=== PATIENT | male | born 1970 | race Caucasian/White ===

== ENCOUNTER → 2019-07-09 | Outpatient (CLI) | payer BC ==
[2019-07-09 16:08] LABS: Basophils % (A) 1 %; Eosinophils # (A) 0.1 k/uL (0-0.7); Eosinophils % (A) 2 %; HGB 13.7 gm/dL (13.0-17.5); Lymphocytes # (A) 1.9 k/uL (1.0-4.8); Lymphocytes % (A) 28 %; MCH 26.9 pg (25.0-35.0); MCHC 32.7 g/dL (31.0-37.0); MCV 82.2 fL (80.0-100.0); Monocytes # (A) 0.3 k/uL (0-1.0); Monocytes % (A) 4 %; Neutrophils # (A) 4.1 k/uL (1.3-7.7); Neutrophils % (A) 62 %; Platelet Count 459 k/uL (150-450); RBC 5.11 m/uL (4.30-5.90); RDW 13.8 % (11.5-15.5); WBC 6.6 k/uL (3.8-10.6)
[2019-07-09 16:22] LABS: INR 0.9 (<1.2); Prothrombin Time 9.7 sec (9.0-12.0)
[2019-07-09 23:50] LABS: Alpha Fetoprotein, Tumor Mkr 2.8 ng/mL (0.0-7.9); Carcinoembryonic Antigen 1.4 ng/mL (0.0-4.9)
[2019-07-10 00:10] LABS: Hepatitis A Antibody IgM Non-Reactive (Non-Reactive); Hepatitis B Core IgM Non-Reactive (Non-Reactive); Hepatitis B Surface Antigen Non-Reactive (Non-Reactive); Hepatitis C IgG Antibody Non-Reactive (Non-Reactive)
[2019-07-10 00:42] LABS: African American GFR (CKD) 116.6 (60.0-200.0); Albumin 4.7 g/dL (3.80-4.90); Albumin/Globulin Ratio 2.04 (1.60-3.17); Anion Gap 6.6 mmol/L (4.00-12.00); BUN/Creat Ratio 14.44 Ratio (12.00-20.00); Calcium 9.4 mg/dL (8.7-10.3); Carbon Dioxide 28.4 mmol/L (21.6-31.8); Globulin 2.3 g/dL (1.6-3.3); Potassium 4.1 mmol/L (3.5-5.5); Total Bilirubin 0.2 mg/dL (0.2-1.2)
== END | disposition home or self-care (01) ==
LOC: LABWHC1 15:36
PROVIDERS: ATTEND Nurse Practitioner
DX: K76.9 Liver disease, unspecified (principal)
CPT/HCPCS: 36415; 80053; 80074; 82105; 82378; 85025; 85610

== ENCOUNTER 2019-07-17 12:14 | Day surgery (SDC) | payer BC ==
[2019-07-15 08:47] VITALS: BMI 33.5
[~2019-07-17 12:14] MED LIST: HYDROmorphone 0.5 MG/0.5 ML SYRINGE IVP PRN; LACTATED RINGERS 1,000 ML IV SCH; ONDANSETRON 4 MG/2 ML VIAL IVP PRN
[2019-07-17 13:02] VITALS: TEMP 97.6
[2019-07-17] MEDS ORDERED: LIDOCAINE 1% 20 ML VIAL (10MG/ML) FOR IV START INTRADERMA ONE (13:02)
[2019-07-17] MEDS ORDERED: PROPOFOL 10 MG/ML 20 ML VIAL IV ONE (13:41)
[2019-07-17] MEDS ORDERED: KETAMINE 10 MG/ML 20 ML VIAL ONE (13:41)
[2019-07-17] MEDS ORDERED: LIDOCAINE 1% INJ 10MG/ML (20 ML MDV) ONE (13:41)
--- NOTE | 2019-07-17 14:26 | P.PCN ---
Date of Procedure: 07/17/19 Description of Procedure: Brief history: Patient is a pleasant scheduled for an elective upper endoscopy as well as colonoscopy as a part of evaluation of epigastric abdominal pain and abnormal CT findings. The patient reports intermittent epigastric pain which has been improved recently. He also had abnormal computed tomography scan findings with annular thickening at the hepatic flexure with colitis and mass both on the differential. Procedure performed: Esophagogastroduodenoscopy with biopsy Colonoscopy with polypectomy and biopsy and tattoo placed Estimated blood loss: Minimal. Preoperative diagnosis: Epigastric abdominal pain, abnormal computed tomography scan of the abdomen (concern for thickening at the area of the hepatic flexure) Anesthesia: MAC Procedure: After informed consent was obtained from the patient was brought into the endoscopy unit and IV sedation was administered by anesthesia under continuous monitoring. Initially upper endoscopy was done. The Olympus GF 190 video endoscope was inserted into the mouth and esophagus intubated without any difficulty and was gradually advanced into the stomach and duodenum and carefully examined. The bulb and second part of the duodenum appeared normal and biopsied. The scope was then withdrawn into the stomach adequately insufflated with air and upon careful examination the antrum and body, cardia and fundus appeared normal, with mild scattered erythema in the antrum and body suggestive of mild gastritis which is biopsy. The scope was then withdrawn into the esophagus. The GE junction was located at 40 cm to the incisors. It appeared regular with no erythema erosions or ulcerations. Rest of the esophagus appeared normal. Patient tolerated the procedure well. At this time the patient continued to remain sedation. Initial digital rectal examination was normal. Olympus CF 190 video colonoscope was then inserted into the rectum and gradually advanced to the cecum without any difficulty. Careful examination was performed as the scope was gradually being withdrawn. The prep was excellent. The transverse colon, descending colon, sigmoid colon and rectum appeared were examined with findings of a circumferential hepatic flexure mass encompassing approximately 80% of the lumen which could not be traversed. Biopsies of the hepatic flexure mass were taken and tattoos were placed proximally to the lesion with suspicion for malignancy. Diminutive sessile transverse colon polyp measuring 2 mm removed with cold forcep polypectomy. Diminutive sessile 3 mm descending colon polyp removed with cold forcep polypectomy. Diminutive 1 mm rectal polyp removed with cold forcep polypectomy. Retroflexion was performed in the rectum and no lesions were noted. Patient tolerated the procedure well. Impression: 1. Mild gastritis antrum and body, biopsied. Duodenal biopsies. 2. Malignant-appearing hepatic flexure mass encompassing 80% of the lumen biopsies with tattoos placed proximal to the mass. 3 diminutive polyps removed from the transverse colon, descending colon and rectum. Recommendations: Findings of this examination were discussed with the patient as well as his . Okay to resume diet. Okay to resume medications. Patient will need surgical evaluation, unclear sessile was care with a surgeon for will need referral. Await pathology from biopsies and polypectomy. Further recommendations pending findings on pathology.
[2019-07-17 14:58] VITALS: BP 138/98; PULSE 72; RESP 18
== END 2019-07-17 15:01 | disposition home or self-care (01) ==
LOC: ORWHC2ENDO 12:14
PROVIDERS: ATTEND Internal Medicine
DX: C18.3 Malignant neoplasm of hepatic flexure (principal); D12.3 Benign neoplasm of transverse colon; D12.4 Benign neoplasm of descending colon; B96.81 Helicobacter pylori [H. pylori] as the cause of diseases classified elsewhere; E66.3 Overweight; Z68.33 Body mass index [BMI] 33.0-33.9, adult; Z87.891 Personal history of nicotine dependence; Z91.013 Allergy to seafood
CPT/HCPCS: 88305; 88342; 45380; 43239; 45381; J2001; J2704

== ENCOUNTER → 2019-07-26 | Outpatient (CLI) | payer BC ==
--- NOTE | 2019-07-26 15:58 | CT ---
EXAMINATION TYPE: CT chest w con DATE OF EXAM: 07/26/2019 COMPARISON: NONE HISTORY: Colon ca. Observe for mets CT DLP: 555.30 mGycm. Automated Exposure Control for Dose Reduction was Utilized. TECHNIQUE: CT scan of the thorax is performed following with IV Contrast, patient injected with 100 mL of Isovue 300. FINDINGS: LUNGS: There is a tiny 2 mm nodular density in the right middle lobe on series 4 image 34 laterally. This is along the pulmonary vessel and could represent vascular ectasia, atelectasis or small pulmona ry nodule. No other suspicious pulmonary nodule or mass is seen. Mild paraseptal emphysematous change . Minimal dependent bibasilar atelectasis. No focal consolidation, pleural effusion or pneumothorax. MEDIASTINUM: There are no greater than 1 cm hilar or mediastinal lymph nodes. No pericardial effusi on is seen. Strand-like density in the superior mediastinum is likely on the basis of residual thymi c tissue. Trace coronary artery calcifications. Heart is upper limits of normal size. OTHER: Mild degree hepatic steatosis is evident, limiting evaluation for hepatic masses. There are 2 hepatic lesions seen in segment 5 and 6 1/3 hepatic lesion seen bridging segment 2 and segment 3. The largest appears as a hepatic cyst and the others will be characterized on the MRI liver ordered (2 s mall to accurately characterize on this single phase CT. Mild multilevel degenerative changes of the spine. Very small hiatal hernia. No adrenal gland nodules. No adenopathy in the upper abdomen. Mild retroare olar gynecomastia. Additionally noted splenomegaly as the spleen measures 14.3 cm in craniocaudal dim ension. IMPRESSION: 1. Punctate 2 mm nodular density in the right middle lobe. This is of low suspicion for metastasis at this time although follow-up CT in 12 months is recommended. This alternatively could represent vasc ular ectasia or atelectasis. 2. No mediastinal adenopathy. No suspicious osseous lesion seen. 3. Incidentally noted hepatic steatosis, hepatic cysts, 2 lesions that are too small to characterize, and splenomegaly.
--- NOTE | 2019-07-26 17:34 | MR ---
EXAMINATION TYPE: MR liver wo/w con DATE OF EXAM: 07/26/2019 COMPARISON: None HISTORY: Colon Ca,Z03.89 Obs for mets CONTRAST: Standard multiplanar, multisequence MRI departmental protocol utilizing 11 mL intravenous Gadavist ga dolinium contrast. FINDINGS: Liver has normal size and contour. There is bilobed 1.2 cm cyst in the central right lobe of the live r. There is 1.6 cm cyst in the left lobe of the liver. The contrast images show multiple variable-sized ring-enhancing lesions in the liver. The largest kehinde sures 2.2 cm. The bile ducts are not dilated. Spleen is intact. Stomach appears intact. There is no e vidence of a pancreatic mass. Pancreatic duct appears normal. Gallbladder is somewhat contracted. There is no adrenal mass. Kidneys show satisfactory contrast opacification. There is no hydronephrosi s. There is no retroperitoneal adenopathy. There is no pleural effusion. There is no ascites. Visuali zed bony structures appear intact. IMPRESSION: Numerous ring-enhancing lesions in the liver consistent with metastatic disease. Small hepatic cysts.
== END | disposition home or self-care (01) ==
LOC: RADCTMAIN 06:58
PROVIDERS: ATTEND Internal Medicine Hematology & Oncology
DX: C18.2 Malignant neoplasm of ascending colon (principal); C78.7 Secondary malignant neoplasm of liver and intrahepatic bile duct; K76.9 Liver disease, unspecified; K76.89 Other specified diseases of liver; J98.4 Other disorders of lung
CPT/HCPCS: 71260; 74183; A9585; Q9967

== ENCOUNTER 2019-07-29 07:24 | Day surgery (SDC) | payer BC ==
[2019-07-29] MEDS ORDERED: HYDROmorphone 1 MG/ML 1 ML SYRINGE IVP PRN ×2 (07:55→09:14)
[2019-07-29] MEDS ORDERED: ALPRAZolam 0.5 MG TAB PO ONE (07:55)
[2019-07-29 08:40] VITALS: TEMP 97.7
[2019-07-29 08:40] LABS: Mean Platelet Volume 5.4; Platelet Count 406 k/uL (150-450)
[2019-07-29 08:49] LABS: Prothrombin Time 10.3 sec (9.0-12.0)
[2019-07-29] MEDS ORDERED: HYDROmorphone 1 MG/ML 1 ML SYRINGE IM STA (09:12)
--- NOTE | 2019-07-29 11:29 | US ---
EXAMINATION TYPE: US biopsy liver DATE OF EXAM: 07/29/2019 HISTORY: Liver masses. FINDINGS: Maximal barrier technique was utilized. The skin overlying a suitable path to the patient' s right lobe liver mass was localized with ultrasound and the overlying skin prepped and draped. Ult rasound was utilized with sterile technique. Lidocaine was used for local anesthesia. A skin jyoti w as made with a scalpel. An 18-gauge needle was advanced under direct ultrasound guidance and core sp ecimen obtained of the mass and additional pass was made using similar technique. Specimen submitted in formalin to Pathology. Following the procedure, hemostasis achieved and the patient is discharge d in stable condition without complication. IMPRESSION:STATUS POST ULTRASOUND GUIDED CORE BIOPSY OF right lobe liver MASS, PATHOLOGY IS PENDING. THIS PROCEDURE IS PERFORMED BY THE UNDERSIGNED.
[2019-07-29 13:09] VITALS: BP 138/78; PULSE 77; RESP 16
== END 2019-07-29 13:00 | disposition home or self-care (01) ==
LOC: RADPROMAIN 07:24
PROVIDERS: ATTEND Student in an Organized Health Care Education/Training Program
DX: C78.7 Secondary malignant neoplasm of liver and intrahepatic bile duct (principal); C18.9 Malignant neoplasm of colon, unspecified; K75.81 Nonalcoholic steatohepatitis (NASH)
CPT/HCPCS: 85049; 85610; 88342; 88307; 88341; 47000; 76942; J1170

== ENCOUNTER → 2019-10-29 | Outpatient (CLI) | payer BC ==
[2019-10-29 14:52] LABS: African American GFR (CKD) >90 (>60 ml/min/1.73 sqM); Blood Urea Nitrogen 14 mg/dL (9-20); Non-African American GFR(CKD) >90 (>60 ml/min/1.73 sqM)
--- NOTE | 2019-10-30 04:19 | CT ---
EXAMINATION TYPE: CT ChestAbdPelvis w con DATE OF EXAM: 10/29/2019 COMPARISON: CT chest 07/26/2019 and MRI liver 07/26/2019. HISTORY: 49-year-old male Colon cancer. TECHNIQUE: Contiguous axial scanning of the chest, abdomen, and pelvis performed with IV Contrast, pa tient injected with 100ml mL of Isovue 300. Delayed images through the kidneys were obtained. Coronal /sagittal reconstructions performed. CT DLP: 2038 mGycm Automated exposure control for dose reduction was used. FINDINGS: CHEST: Right anterior chest wall injection port with catheter tip at the mid SVC level. Heart normal size without pericardial effusion. Ectatic aortic root at 3.8 cm. Conventional arch vessel branching anatomy. Mild bilateral gynecomastia. No thoracic lymphadenopathy by CT size criteria. A 4 mm right middle lobe pulmonary nodule is slightly more defined from prior exam previously measuri ng 3 mm. A 7 mm subpleural pulmonary nodule posterior right lower lobe is unchanged. Mild centrilobular emphysema in the upper lungs. No consolidation or pleural effusion. ABDOMEN: Multiple small hepatic lesions are redemonstrated, 2 of which represent benign cysts. The hypodense l esions have decreased in size compared to the MRI of 07/26/2019. Approximately 8 lesions are identified. The largest in the posterior right liver lobe, axial image 61 , measuring 1.8 cm versus 2.3 cm, previously. Another lesion in the peripheral right lower lobe, axial image 65 measures 1.3 cm versus 2.0 cm, prev iously. Portal venous system is patent. No biliary ductal dilatation. Gallbladder, adrenal glands, kidneys, spleen, and pancreas appear within normal limits. No dilated small bowel, free fluid, or free air. No mesenteric or retroperitoneal lymphadenopathy. Normal appendix. Moderate stool burden. Redundant sigmoid colon. No pericolonic inflammatory change. Mild fusiform ectasia infrarenal abdominal aorta at 2.5 cm. PELVIS: Bladder urine distended. Prostate gland measures 4.6 cm wide with central calcifications. No abnormal fluid collection in the pelvis or pelvic lymphadenopathy. BONES: No osseous destructive process. IMPRESSION: 1. HEPATIC METASTASES, APPROXIMATELY 8 ARE COUNTED. THESE HAVE DECREASED IN SIZE COMPARED TO 07/26. FOR EXAMPLE, THE LARGEST MEASURES 1.8 CM VERSUS 2.3 CM, PREVIOUSLY. ANOTHER LESION MEASURES 1. 3 CM VERSUS 2.0 CM, PREVIOUSLY. 2. COPD WITH MILD EMPHYSEMA. A 4 MM RIGHT MIDDLE LOBE PULMONARY NODULE IS NONSPECIFIC AND IS SLIGHTLY MORE DEFINED FROM PRIOR. CONTINUED FOLLOW-UP RECOMMENDED.
== END | disposition home or self-care (01) ==
LOC: RADPROMAIN 13:43
PROVIDERS: ATTEND Internal Medicine Hematology & Oncology
DX: C78.7 Secondary malignant neoplasm of liver and intrahepatic bile duct (principal); J43.9 Emphysema, unspecified; R91.1 Solitary pulmonary nodule; C18.2 Malignant neoplasm of ascending colon
CPT/HCPCS: 82565; 84520; 71260; 74177; 36415; J1642; Q9967

== ENCOUNTER → 2020-02-04 | Outpatient (CLI) | payer BC ==
[2020-02-04 08:54] LABS: African American GFR (CKD) >90 (>60 ml/min/1.73 sqM); Blood Urea Nitrogen 13 mg/dL (9-20); Non-African American GFR(CKD) >90 (>60 ml/min/1.73 sqM)
--- NOTE | 2020-02-04 10:53 | CT ---
EXAMINATION TYPE: CT ChestAbdPelvis w con DATE OF EXAM: 02/04/2020 COMPARISON: 10/29/2019 HISTORY: follow up colon cancer CT DLP: 1985 mGycm CONTRAST: CT scan of the chest, abdomen and pelvis is performed with Oral Contrast and with IV Contrast, patien t injected with 80 mL of Isovue 300. CT Chest: LUNGS: The lungs are clear and free of infiltrate or atelectasis. No change in right lower lobe subpl eural pulmonary nodule measuring 7 mm versus 7 mm previously. Stable 4 mm right middle lobe pulmonary nodule unchanged from prior study of 4 mm. No new pulmonary nodules identified. Mild centrilobular e mphysema noted. No pleural effusion or CT evidence of interstitial lung disease. MEDIASTINUM: Thoracic aorta is of normal caliber. The heart is mildly enlarged. No evidence for me diastinal mass or adenopathy. HILAR STRUCTURES: No evidence for mass. No hilar adenopathy is appreciated. OTHER: No significant abnormality. CONTRAST CT ABDOMEN AND PELVIS FINDINGS: LIVER/GB: There is evidence of hepatic steatosis. No calcified gallstones. Again noted are 2 simple cysts one within the lateral segment left hepatic lobe and the second within the anterior segment ri ght hepatic lobe are unchanged. In addition there are hypoattenuating lesions redemonstrated totaling 4 number the largest of which is noted within the posterior segment right hepatic lobe measuring 1.8 cm versus a nearly 1.8 cm previously. No new lesions are identified. Biliary tree is of normal calib er. PANCREAS: No inflammation. No distinct mass. SPLEEN: No splenic enlargement. No lesion seen. ADRENALS: No nodule. No thickening. KIDNEYS/BLADDER: No hydronephrosis. No nephrolithiasis. No disctinct renal mass. BOWEL: Normal appendix. Normal bowel caliber. No inflammation. GENITAL ORGANS: No gross abnormality. LYMPH NODES: No greater than 1cm abdominal or pelvic lymph nodes are appreciated. AORTA: No significant abnormality. OSSEOUS STRUCTURES: No significant abnormality is seen. OTHER: No significant additional abnormality is seen. IMPRESSION: 1. Vague hypoattenuating lesions totaling approximately 4 in number on the current study versus a pre viously. The dominant lesion is stable posterior segment right hepatic lobe at 1.8 cm versus nearly 1 .8 cm previously. 2. Stable hepatic cysts totaling 2 in number. 3. Fatty liver. 4. Stable pulmonary nodules.
== END | disposition home or self-care (01) ==
LOC: RADPROMAIN 07:48
PROVIDERS: ATTEND Internal Medicine Hematology & Oncology
DX: K76.89 Other specified diseases of liver (principal); K76.0 Fatty (change of) liver, not elsewhere classified; R91.1 Solitary pulmonary nodule; C18.2 Malignant neoplasm of ascending colon
CPT/HCPCS: 82565; 84520; 71260; 74177; J1642; Q9967

== ENCOUNTER → 2020-02-04 | Outpatient (CLI) | payer BC ==
--- NOTE | 2020-02-04 15:45 | MR ---
EXAMINATION TYPE: MR liver wo/w con DATE OF EXAM: 02/04/2020 COMPARISON: Same day CT study and older CT. Prior MRI liver July 26, 2019. HISTORY: Colon CA. Metastatic to liver progress study. CONTRAST: Standard multiplanar, multisequence MRI departmental protocol utilizing 11 mL intravenous Gadavist ga dolinium contrast. Imaging is performed of the abdomen focusing on the liver. FINDINGS: Liver: Liver remains overall normal in size. Mild diffuse signal dropout consistent with mild diffuse fatty infiltration. Stable appearing 1.6 cm thin-walled cyst lateral segment left hepatic lobe image 31 series 501. Stable slightly smaller bilobed 1.3 x 0.9 cm cyst right hepatic lobe axial image 24. No new intrahepatic ductal dilatation. Rim enhancing 7 mm lesion periphery right hepatic lobe image 470 series 801 for reference diminished in size from 14 mm long axis prior study image 571 series 701. Nonenhancing 9 mm lesion posterior rig ht hepatic lobe axial image 428 series 801 diminished in size from 16 mm with rim enhancement prior s tudy image 521 series 701. No rim enhancement currently. There is 6 mm nonenhancing lesion right hepa tic lobe anteriorly image 388 series 801 diminished in size from 14 mm with rim enhancement prior bruce dy image 476 series 701. Roughly 3 to 4 mm nonenhancing lesion same image posterior right hepatic lob e current study not as well seen on prior study. Largest nonenhancing lesion posterior right hepatic lobe near branch of right portal vein measures 17 mm current study image 303 series 801 and measured 23 mm long axis with some rim enhancement on prior study image 391 series 701. Small suspected slight heterogeneous enhancing lesion anterior inferior to the bilobed cyst right hepatic lobe measures 12 mm long axis image 263 series 801 versus 20 mm long axis image 361 series 701. Nonenhancing lesion po sterior inferior to this right hepatic lobe measures 11 mm long axis image 218 series 801 versus 14 m m with rim enhancement prior study image 321 series 701. No definitive new or enlarging lesions are s een. Other: Small sized hiatal hernia is now present. More prominent from same day CT earlier today suspec jeff sliding-type. Lung bases remain clear. Spleen, gallbladder, pancreas, both adrenal glands remain within normal limits. No concerning renal mass or hydronephrosis. No suspicious small or large bowel dilatation. No abdominal ascites or new abdominal adenopathy. Visualized osseous structures are intac t. IMPRESSION: Interval improvement in multifocal hepatic metastatic disease as detailed above. No defin itive new or enlarging lesions identified.
== END | disposition home or self-care (01) ==
LOC: RADMRIMAIN 07:55
PROVIDERS: ATTEND Internal Medicine Hematology & Oncology
DX: C18.2 Malignant neoplasm of ascending colon (principal); C78.7 Secondary malignant neoplasm of liver and intrahepatic bile duct
CPT/HCPCS: 74183; A9585

== ENCOUNTER → 2020-05-21 | Outpatient (CLI) | payer BC ==
[2020-05-21 11:16] LABS: African American GFR (CKD) >90 (>60 ml/min/1.73 sqM); Blood Urea Nitrogen 12 mg/dL (9-20); Non-African American GFR(CKD) >90 (>60 ml/min/1.73 sqM)
--- NOTE | 2020-05-21 13:16 | CT ---
EXAMINATION TYPE: CT ChestAbdPelvis w con DATE OF EXAM: 05/21/2020 COMPARISON: 02/04/2020 HISTORY: follow up colon cancer CT DLP: 1804.5 mGycm CONTRAST: CT scan of the chest, abdomen and pelvis is performed with Oral Contrast and with IV Contrast, patien t injected with 100 mL of Isovue 300. CT Chest: LUNGS: The lungs are clear and free of infiltrate or atelectasis. Stable subpleural nodule right lowe r lobe at 7 mm versus 7 mm. Stable 3 to 4 mm pulmonary nodule lateral segment right hepatic lobe vers us 4 mm previously. No new pulmonary nodules identified. No pleural effusion or CT evidence of inters titial lung disease. MEDIASTINUM: Thoracic aorta is of normal caliber. The heart is not enlarged. No evidence for media stinal mass or adenopathy. HILAR STRUCTURES: No evidence for mass. No hilar adenopathy is appreciated. OTHER: No significant abnormality. CONTRAST CT ABDOMEN AND PELVIS FINDINGS: LIVER/GB: No calcified gallstones. There is evidence of hepatic steatosis. Vague hypoattenuating le cheri posterior segment right hepatic lobe image 53 measures 1.5 cm versus 1.7 cm previously. More cys tic appearing lesion anterior segment right hepatic lobe is stable at 1 cm. Additional cystic appeari ng lesion left hepatic lobe lateral segment measures 1.6 cm versus 1.6 cm previously. No new lesions are seen. Biliary tree is of normal caliber. PANCREAS: No inflammation. No distinct mass. SPLEEN: No splenic enlargement. No lesion seen. ADRENALS: No nodule. No thickening. KIDNEYS/BLADDER: No hydronephrosis. No nephrolithiasis. No disctinct renal mass. BOWEL: Normal appendix. Normal bowel caliber. No inflammation. GENITAL ORGANS: No gross abnormality. LYMPH NODES: No greater than 1cm abdominal or pelvic lymph nodes are appreciated. AORTA: No significant abnormality. OSSEOUS STRUCTURES: No significant abnormality is seen. OTHER: No significant additional abnormality is seen. IMPRESSION: 1. 3 hepatic lesions are noted without significant interval change with regards to overall size shape or morphology. No new lesions are seen. 2. Fatty liver. 3. Stable small pulmonary nodularity.
== END | disposition home or self-care (01) ==
LOC: RADCTMAIN 10:24
PROVIDERS: ATTEND Internal Medicine Hematology & Oncology
DX: K76.0 Fatty (change of) liver, not elsewhere classified (principal); R91.8 Other nonspecific abnormal finding of lung field; C18.2 Malignant neoplasm of ascending colon
CPT/HCPCS: 82565; 84520; 71260; 74177; J1642; Q9967

== ENCOUNTER → 2020-06-12 | Outpatient (CLI) | payer BC ==
--- NOTE | 2020-06-12 10:13 | MR ---
EXAMINATION TYPE: MR brain wo/w con DATE OF EXAM: 06/12/2020 COMPARISON: None HISTORY: Headaches, hx colon cancer C 18.2 TECHNIQUE: Multiplanar, multisequence images of the brain and brainstem is performed without and with IV contras t, utilizing 10 mL intravenous Gadavist . FINDINGS: Diffusion weighted images demonstrate no evidence of a recent infarct or other diffusion ab normality. There is no extra-axial fluid, some scattered hyperintensities in the periventricular, belcher bcortical white matter on inversion recovery T2-weighted sequences are present, proximally 5-10 lesio ns of questionable clinical significance. The ventricular system and cisternal spaces are normal in size and appearance. The brain volume is age appropriate. Midline structures demonstrate normal morphology. The craniocervical junction appears within normal limits. Post contrast images demonstrate no abnormal enhancement. The dural venous sinuses appear pa tent. The visualized sinuses are showing some inflammatory change in the ethmoid air cells, and the g lobes are intact. IMPRESSION: Nonspecific white matter demyelination could be due to hypertension, migraine headaches, vasculitis, multiple sclerosis felt to be less likely. Mild sinus disease.
== END | disposition home or self-care (01) ==
LOC: RADMRIMAIN 07:54
PROVIDERS: ATTEND Internal Medicine Hematology & Oncology
DX: R90.82 White matter disease, unspecified (principal); G37.8 Other specified demyelinating diseases of central nervous system; C18.2 Malignant neoplasm of ascending colon
CPT/HCPCS: 70553; A9585

== ENCOUNTER → 2020-08-03 | Outpatient (CLI) | payer BC ==
[2020-08-03 09:34] LABS: African American GFR (CKD) >90 (>60 ml/min/1.73 sqM); Blood Urea Nitrogen 10 mg/dL (9-20); Non-African American GFR(CKD) >90 (>60 ml/min/1.73 sqM)
--- NOTE | 2020-08-03 11:24 | CT ---
EXAMINATION TYPE: CT ChestAbdPelvis w con DATE OF EXAM: 08/03/2020 COMPARISON: 05/21/2020 HISTORY: Colon cancer CT DLP: 1951.30 mGycm CONTRAST: CT scan of the chest, abdomen and pelvis is performed with Oral Contrast and with IV Contrast, patien t injected with 100 ml mL of Isovue 300. CT Chest: LUNGS: The lungs are clear and free of infiltrate or atelectasis. Stable subpleural nodule right low er lobe at 7 mm versus 7 mm. Stable 3 to 4 mm pulmon jessica nodule lateral segment right hepatic lobe ve rsus 4 mm previously. No new pulmonary nodules identified. No pleural effusion or CT evidence of interstitial lung disease. MEDIASTINUM: Thoracic aorta is of normal caliber. The heart is not enlarged. No evidence for media stinal mass or adenopathy. HILAR STRUCTURES: No evidence for mass. No hilar adenopathy is appreciated. OTHER: No significant abnormality. CONTRAST CT ABDOMEN AND PELVIS FINDINGS: LIVER/GB: No calcified gallstones. Fatty liver. Hypoattenuating hepatic lesions are stable and may reflect cysts. Cystic metastases difficult to exclude. No new lesions identified. Biliary tree is of normal caliber. PANCREAS: No inflammation. No distinct mass. SPLEEN: No splenic enlargement. No lesion seen. ADRENALS: No nodule. No thickening. KIDNEYS/BLADDER: No hydronephrosis. No nephrolithiasis. No disctinct renal mass. BOWEL: Normal appendix. Normal bowel caliber. No inflammation. GENITAL ORGANS: No gross abnormality. LYMPH NODES: No greater than 1cm abdominal or pelvic lymph nodes are appreciated. AORTA: No significant abnormality. OSSEOUS STRUCTURES: No significant abnormality is seen. OTHER: No significant additional abnormality is seen. IMPRESSION: 1. Overall stable examination with fatty liver. Hepatic lesions unchanged. Stable pulmonary nodularit y.
== END | disposition home or self-care (01) ==
LOC: RADCTMAIN 08:52
PROVIDERS: ATTEND Internal Medicine Hematology & Oncology
DX: K76.0 Fatty (change of) liver, not elsewhere classified (principal); K76.89 Other specified diseases of liver; R91.1 Solitary pulmonary nodule; C18.2 Malignant neoplasm of ascending colon
CPT/HCPCS: 82565; 84520; 71260; 74177; 36415; Q9967

== ENCOUNTER → 2020-10-19 | Outpatient (CLI) | payer BC ==
[2020-10-19 08:48] LABS: African American GFR (CKD) >90 (>60 ml/min/1.73 sqM); Blood Urea Nitrogen 14 mg/dL (9-20); Non-African American GFR(CKD) >90 (>60 ml/min/1.73 sqM)
--- NOTE | 2020-10-19 11:41 | CT ---
EXAMINATION TYPE: CT ChestAbdPelvis w con DATE OF EXAM: 10/19/2020 COMPARISON: CT 08/03/2020 HISTORY: colon CA CT DLP: 1998.8 mGycm Automated exposure control for dose reduction was used. CONTRAST: CT scan of the chest, abdomen and pelvis is performed with Oral Contrast and with IV Contrast, patien t injected with 100 mL of Isovue 300. FINDINGS: LUNGS: The lungs are grossly clear, there is no concerning parenchymal mass or nodule identified. T here is no pleural effusion or pneumothorax seen. The tracheobronchial tree is patent. MEDIASTINUM: There are no greater than 1 cm hilar or mediastinal lymph nodes. No pericardial effusi on is seen. AORTA: No significant abnormality is seen. OTHER: No additional significant abnormality is seen. LIVER/GB: Liver shows a stable appearance compared to most recent CT. PANCREAS: No significant abnormality is seen. SPLEEN: Enlarged to greater than 15 cm as on previous exam. ADRENALS: No significant abnormality is seen. KIDNEYS: No significant abnormality is seen. REPRODUCTIVE ORGANS: Stable, there are prostate calcifications. BOWEL: An area of relative narrowing in the colon on axial image 65 likely present on previous exams from July 2020, 02/04/2020, 05/21/2020, 10/29/2019 within the right colon. FREE AIR: No Free Air visible. ASCITES: None seen. RETROPERITONEAL ADENOPATHY: No retroperitoneal adenopathy is seen. LYMPH NODES: No greater than 1 cm abdominal or pelvic lymph nodes are appreciated. URINARY BLADDER: No significant abnormality is seen. PELVIC ADENOPATHY: None visualized. OSSEOUS STRUCTURES: No significant abnormality is seen. IMPRESSION: Narrowing in the right colon may correspond to history of colon carcinoma. Splenomegaly. Stable appearance to the liver to most recent CT. No acute abnormalities evident.
== END | disposition home or self-care (01) ==
LOC: RADCTMAIN 08:05
PROVIDERS: ATTEND Internal Medicine Hematology & Oncology
DX: R16.1 Splenomegaly, not elsewhere classified (principal); K56.699 Other intestinal obstruction unspecified as to partial versus complete obstruction; C18.2 Malignant neoplasm of ascending colon
CPT/HCPCS: 82565; 84520; 71260; 74177; 36415; Q9967

== ENCOUNTER → 2021-02-04 | Outpatient (CLI) | payer BC ==
[2021-02-04 13:57] LABS: African American GFR (CKD) >90 (>60 ml/min/1.73 sqM); Blood Urea Nitrogen 9 mg/dL (9-20); Non-African American GFR(CKD) >90 (>60 ml/min/1.73 sqM)
--- NOTE | 2021-02-04 15:04 | CT ---
EXAMINATION TYPE: CT ChestAbdPelvis w con DATE OF EXAM: 02/04/2021 COMPARISON: 10/19/2020 HISTORY: follow up colon cancer CT DLP: 2076.8 mGycm CONTRAST: CT scan of the chest, abdomen and pelvis is performed with Oral Contrast and with IV Contrast, patien t injected with 100 mL of Isovue 300. CT Chest: LUNGS: The lungs are clear and free of infiltrate or atelectasis. No pulmonary nodule or mass is det ected. No pleural effusion or CT evidence of interstitial lung disease. MEDIASTINUM: Thoracic aorta is of normal caliber. The heart is not enlarged. No evidence for media stinal mass or adenopathy. HILAR STRUCTURES: No evidence for mass. No hilar adenopathy is appreciated. OTHER: No significant abnormality. CONTRAST CT ABDOMEN AND PELVIS FINDINGS: LIVER/GB: No calcified gallstones. There is mild hepatic steatosis. Cystic lesion left hepatic lobe is stable at 1.2 cm. Additional cystic lesion anterior segment right hepatic lobe is stable at 1.2 c m. No additional lesions seen with certainty. No solid hepatic lesions seen at this time. Biliary silas e is of normal caliber. PANCREAS: No inflammation. No distinct mass. SPLEEN: Spleen is mildly enlarged at 14 cm craniocaudal dimension. ADRENALS: No nodule. No thickening. KIDNEYS/BLADDER: No hydronephrosis. No nephrolithiasis. No disctinct renal mass. BOWEL: Normal appendix. Normal bowel caliber. No inflammation. GENITAL ORGANS: No gross abnormality. LYMPH NODES: No greater than 1cm abdominal or pelvic lymph nodes are appreciated. AORTA: No significant abnormality. OSSEOUS STRUCTURES: No significant abnormality is seen. OTHER: No significant additional abnormality is seen. IMPRESSION: 1. Stable examination. There is mild hepatic steatosis. Cystic lesion left hepatic lobe is stable at 1.2 cm. Additional cystic lesion anterior segment right hepatic lobe is stable at 1.2 cm. No additio nal lesions seen with certainty.
== END | disposition home or self-care (01) ==
LOC: RADPROMAIN 12:25
PROVIDERS: ATTEND Internal Medicine Hematology & Oncology
DX: C18.2 Malignant neoplasm of ascending colon (principal); K76.89 Other specified diseases of liver
CPT/HCPCS: 82565; 84520; 71260; 74177; 36415; Q9967

== ENCOUNTER → 2021-04-29 | Outpatient (CLI) | payer BC ==
[2021-04-29 12:50] LABS: African American GFR (CKD) >90 (>60 ml/min/1.73 sqM); Blood Urea Nitrogen 19 mg/dL (9-20); Non-African American GFR(CKD) >90 (>60 ml/min/1.73 sqM)
--- NOTE | 2021-05-01 22:13 | CT ---
EXAMINATION TYPE: CT ChestAbdPelvis w con DATE OF EXAM: 04/29/2021 COMPARISON: 02/04/2021, 10/19/2020, 08/03/2020 HISTORY: 50-year-old male C1 8.2, follow up to colon CA TECHNIQUE: Contiguous axial scanning of the chest, abdomen, and pelvis performed with IV Contrast, pa tient injected with 100 mL of Isovue 300. Delayed images through the kidneys were obtained. Coronal/s agittal reconstructions performed. CT DLP: 2347 mGycm Automated exposure control for dose reduction was used. FINDINGS: CHEST: Heart normal size without pericardial effusion. Right anterior chest wall injection port with catheter tip at the mid SVC level. Borderline ectatic aortic root at 3.7 cm. Conventional arch vessel branching anatomy. Trace bilateral gynecomastia. No thoracic lymphadenopathy by CT size criteria. Mild emphysematous changes in the upper lungs. Some nodular subpleural atelectasis noted along the dependent portion of the lungs. No consolidation or pleural effusion. ABDOMEN: A couple benign hepatic cysts are again demonstrated measuring up to 1.7 cm. Now apparent are approximately 5 very subtle hypodense hepatic lesions measuring up to 2.9 cm. In retrospect, a couple of these may have been very small and difficult to discern on 02/04/2021 but a re not clearly seen on the 10/19/2020 exam. Portal venous system is patent. No biliary ductal dilatation. Gallbladder, common adrenal glands, kidneys, spleen, and pancreas within normal limits. Minimal atherosclerotic calcifications infrarenal abdominal aorta without aneurysm. No dilated small bowel, free fluid, free air. No mesenteric or retroperitoneal lymphadenopathy. Normal appendix. Moderate stool burden. Redemonstrated 3 cm long segment of annular thickening and na rrowing at the upper ascending colon. No pericolonic inflammatory change. PELVIS: Mild circumferential bladder wall thickening is unchanged, probably chronic bilateral hypertrophy. Pr ostate gland measures 4.7 cm wide. No abnormal fluid collection in the pelvis or pelvic lymphadenopat hy. BONES: Mild degenerative change at the hips. No osseous destructive process. IMPRESSION: 1. APPROXIMATELY 5 VERY SUBTLE HEPATIC LESIONS ARE NOW SEEN MEASURING UP TO 2.9 CM. IN RETROSPECT, TH DENA WERE DIFFICULT TO DISCERN ON 02/04/2021 AND ARE NOT CLEARLY SEEN ON THE 10/19/2020 EXAM. SUBTLE PROG RESSION IS SUGGESTED. 2. REDEMONSTRATED 3 CM LONG SEGMENT OF ANNULAR THICKENING AND NARROWING ALONG THE UPPER ASCENDING COL ON. QUERY SITE OF PRIMARY NEOPLASM. 3. 2 HEPATIC CYSTS ARE STABLE.
== END | disposition home or self-care (01) ==
LOC: RADCTMAIN 12:02
PROVIDERS: ATTEND Internal Medicine Hematology & Oncology
DX: Z03.89 Encounter for observation for other suspected diseases and conditions ruled out (principal); C18.2 Malignant neoplasm of ascending colon; K76.89 Other specified diseases of liver
CPT/HCPCS: 82565; 84520; 71260; 74177; 36415; Q9967

== ENCOUNTER → 2021-09-06 | Outpatient (CLI) | payer BC ==
[2021-09-06 08:39] LABS: African American GFR (CKD) >90 (>60 ml/min/1.73 sqM); Blood Urea Nitrogen 12 mg/dL (9-20); Non-African American GFR(CKD) >90 (>60 ml/min/1.73 sqM)
--- NOTE | 2021-09-06 10:18 | CT ---
EXAMINATION TYPE: CT ChestAbdPelvis w con DATE OF EXAM: 09/06/2021 COMPARISON: April 2021 HISTORY: Colon cancer follow up CT DLP: 2063.5 mGycm CONTRAST: CT scan of the chest, abdomen and pelvis is performed with Oral Contrast and with IV Contrast, patien t injected with 100 mL of Isovue 300. CT Chest: LUNGS: The lungs are clear and free of infiltrate or atelectasis. No pulmonary nodule or mass is det ected. No pleural effusion or CT evidence of interstitial lung disease. MEDIASTINUM: Thoracic aorta is of normal caliber. The heart is not enlarged. No evidence for media stinal mass or adenopathy. HILAR STRUCTURES: No evidence for mass. No hilar adenopathy is appreciated. OTHER: No significant abnormality. CONTRAST CT ABDOMEN AND PELVIS FINDINGS: LIVER/GB: No calcified gallstones. There is evidence of underlying hepatic steatosis. Simple cyst i s noted left hepatic lobe lateral segment measuring 1.6 cm. Is unchanged from prior study. There is a lso a cyst noted within the anterior segment right hepatic lobe measuring 1.3 cm versus 1.3 cm previo usly. No new lesions are identified. Biliary tree is of normal caliber. PANCREAS: No inflammation. No distinct mass. SPLEEN: No splenic enlargement. No lesion seen. ADRENALS: No nodule. No thickening. KIDNEYS/BLADDER: No hydronephrosis. No nephrolithiasis. No disctinct renal mass. BOWEL: Normal appendix. Normal bowel caliber. No inflammation. GENITAL ORGANS: No gross abnormality. LYMPH NODES: No greater than 1cm abdominal or pelvic lymph nodes are appreciated. AORTA: No significant abnormality. OSSEOUS STRUCTURES: No significant abnormality is seen. OTHER: No significant additional abnormality is seen. IMPRESSION: 1. No evidence for recurrent or residual disease. No metastatic disease noted. 2. Hepatic steatosis with stable hepatic cysts.
== END | disposition home or self-care (01) ==
LOC: RADCTMAIN 07:57
PROVIDERS: ATTEND Internal Medicine Hematology & Oncology
DX: C18.2 Malignant neoplasm of ascending colon (principal); K76.0 Fatty (change of) liver, not elsewhere classified; K76.89 Other specified diseases of liver
CPT/HCPCS: 82565; 84520; 71260; 74177; 36415; Q9967

== ENCOUNTER 2023-02-07 08:49 | Day surgery (SDC) | payer BC ==
[2023-02-02 12:45] VITALS: BMI 34.4
[~2023-02-07 08:49] MED LIST changes: -HYDROmorphone 0.5 MG/0.5 ML SYRINGE IVP PRN; +LIDOCAINE 1% (10MG/ML) FOR IV START INTRADERMA PRN; -ONDANSETRON 4 MG/2 ML VIAL IVP PRN
[2023-02-07 09:45] VITALS: TEMP 98
[2023-02-07] MEDS ORDERED: PROPOFOL 10 MG/ML 20 ML VIAL IV ONE (10:17)
[2023-02-07] MEDS ORDERED: LIDOCAINE 2% INJ 20 MG/ML (2 ML VIAL) ONE (10:17)
--- NOTE | 2023-02-07 10:42 | P.PCN ---
Date of Procedure: 02/07/23 Procedure(s) Performed: BRIEF HISTORY: Patient is a 52-year-old pleasant white male scheduled for an elective colonoscopy as a part of surveillance of prior history of colon cancer diagnosed in 2019. He is status post right hemicolectomy followed by chemotherapy and liver resection at [facility]. He has been in clinical remission. He'll follow surveillance colonoscopy today. PROCEDURE PERFORMED: Colonoscopy. PREOPERATIVE DIAGNOSIS: Surveillance of colon cancer diagnosed in 2019. IV sedation per Anesthesia. PROCEDURE: After informed consent was obtained, the patient, was brought into the endoscopy unit. IV sedation was administered by Anesthesia under continuous monitoring. Digital rectal examination was normal. Initially the Olympus CF-160 flexible video colonoscope was then inserted in the rectum, gradually advanced into the transverse colon with ileocolic anastomosis was visualized without any difficulty. Careful examination was performed as the scope was gradually being withdrawn. The anastomosis appeared normal. Mucosa of the transverse colon, descending colon, sigmoid colon, and rectum appeared normal. Retroflexion was performed in the rectum and no lesions were seen. The patient tolerated the procedure well. IMPRESSION: Normal-appearing colon from rectum to ileocolic anastomosis with no evidence of colorectal neoplasia. RECOMMENDATIONS: Findings of this examination were discussed with the patient as well as his family. He was advised to have a repeat colonoscopy in 3 years because of the prior history of colon cancer.
[2023-02-07 10:59] VITALS: BP 130/81; PULSE 67; RESP 16
== END 2023-02-07 11:38 | disposition home or self-care (01) ==
LOC: ORWHC2ENDO 08:49
PROVIDERS: ATTEND Internal Medicine Gastroenterology
DX: Z12.11 Encounter for screening for malignant neoplasm of colon (principal); K21.9 Gastro-esophageal reflux disease without esophagitis; Z85.038 Personal history of other malignant neoplasm of large intestine; Z86.718 Personal history of other venous thrombosis and embolism; Z87.891 Personal history of nicotine dependence
CPT/HCPCS: 45378; J2704; J2001

== ENCOUNTER 2023-10-06 08:25 | Emergency (ER) | payer BC ==
[2023-10-06 08:32] LABS: Glucose,Whole Blood 407 mg/dL (70-110)
[2023-10-06] MEDS ORDERED: SODIUM CHLORIDE 0.9% 1,000 ML IV STA (08:46)
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
[2023-10-06] MEDS ORDERED: INSULIN REGULAR 100 UNIT/ML VIAL (IV) IV ONE (09:36)
[2023-10-06 10:16] LABS: Basophils % (A) 0 %; Eosinophils # (A) 0.1 k/uL (0-0.7); Eosinophils % (A) 1 %; HCT 44.7 % (39.0-53.0); Lymphocytes # (A) 1.4 k/uL (1.0-4.8); Lymphocytes % (A) 20 %; MCH 29.6 pg (25.0-35.0); MCHC 33.6 g/dL (31.0-37.0); MCV 88.1 fL (80.0-100.0); Mean Platelet Volume 7.3; Monocytes # (A) 0.3 k/uL (0-1.0); Monocytes % (A) 4 %; Neutrophils # (A) 5.2 k/uL (1.3-7.7); Neutrophils % (A) 74 %; Platelet Count 249 k/uL (150-450); RBC 5.07 m/uL (4.30-5.90); RDW 14.9 % (11.5-15.5)
[2023-10-06 10:46] LABS: ALT 241 U/L (4-49); AST 60 U/L (17-59); African American GFR (CKD) >90 (>60 ml/min/1.73 sqM); Albumin 3.9 g/dL (3.5-5.0); Alkaline Phosphatase 319 U/L (38-126); Anion Gap 12 mmol/L; Blood Urea Nitrogen 17 mg/dL (9-20); Calcium 9.2 mg/dL (8.4-10.2); Carbon Dioxide 20 mmol/L (22-30); Chloride 101 mmol/L (98-107); Glucose 340 mg/dL (74-99); Magnesium 1.8 mg/dL (1.6-2.3); Non-African American GFR(CKD) >90 (>60 ml/min/1.73 sqM); Potassium 4.2 mmol/L (3.5-5.1); Sodium 133 mmol/L (137-145); Total Bilirubin 1.1 mg/dL (0.2-1.3); Total Protein 6.8 g/dL (6.3-8.2)
[2023-10-06 11:12] LABS: Appearance,Urine Clear (Clear); Bilirubin,Urine Negative (Negative); Blood,Urine Negative (Negative); Color,Urine Colorless; Glucose,Urine (UA) 4+ (Negative); Leukocyte Esterase,Urine Negative (Negative); Nitrite,Urine Negative (Negative); PH, Urine 5.5 (5.0-8.0); Protein,Urine 1+ (Negative); RBC,Urine 1 /hpf (0-5); Specific Gravity,Urine 1.033 (1.001-1.035); Urobilinogen,Urine <2.0 mg/dL (<2.0); WBC,Urine 1 /hpf (0-5)
[2023-10-06 11:41] LABS: Ketones,Urine 2+ (Negative)
[2023-10-06 11:56] LABS: Glucose,Whole Blood 270 mg/dL (70-110)
[2023-10-06] MEDS ORDERED: metFORMIN 500 MG TAB PO STA (13:12)
[2023-10-06 13:59] VITALS: BP 122/80; PULSE 74; RESP 16; TEMP 97.9
== END 2023-10-06 13:54 | disposition home or self-care (01) ==
LOC: EC 08:25
DX: R73.9 Hyperglycemia, unspecified (principal); Z91.013 Allergy to seafood; Z87.891 Personal history of nicotine dependence
CPT/HCPCS: 36415; 80053; 81001; 82009; 83605; 83735; 85025; 93005; 96360; 99284

== ENCOUNTER 2024-05-03 10:05 | Emergency (ER) | payer BC ==
[2024-05-03] MEDS ORDERED: diphenhydrAMINE 50 MG/ML 1 ML VIAL ONE (10:52)
[2024-05-03] MEDS ORDERED: FAMOTIDINE 20 MG/2 ML VIAL ONE (10:52)
[2024-05-03] MEDS ORDERED: HYDROmorphone 1 MG/ML 1 ML SYRINGE ONE ×2 (10:52→14:31)
[2024-05-03] MEDS ORDERED: methylPREDNISolone SOD SUCCI 125 MG/2 ML VIAL ONE (10:52)
[2024-05-03] MEDS ORDERED: SODIUM CHLORIDE 0.9% 1,000 ML BAG ONE (11:20)
[2024-05-03] MEDS ORDERED: ACET/COD 300 MG/30 MG STARTER PACK 6 TAB BTL PO ONE (14:31)
--- NOTE | 2024-05-23 08:17 | CT ---
Report Patient: Gopal Pimentel Ordering Physician: Unknown, Unknown ID: [id number] Phone, Pager: Phone: N/A Pager: N/A : [phone] Age/Gender: 53Y, M Primary Location: N/A Procedure: CT abdomen pelvis w con Study Date: 05/03/2024 12:46:00 PM EXAMINATION TYPE: CT abdomen pelvis w con DATE OF EXAM: 05/03/2024 COMPARISON: 09/06/2021 HISTORY: 53-year-old male right-sided abdominal and flank pain. History of colon and liver cancer. TECHNIQUE: Contiguous axial scanning of the abdomen and pelvis following administration of 100 ml Iso flaco 300 IV contrast. Delayed images through the kidneys and coronal/sagittal reconstructions perform ed. CT DLP: 1263 mGycm Automated exposure control for dose reduction was used. FINDINGS: The heart is upper limits of normal in size without pericardial effusion. Strandy atelectas is or scarring at the lower lungs, right greater than left. Interval post resection changes, partial right hepatectomy. Some 3.7 x 2.4 cm fluid along the posteri or superior resection site shows no abnormal peripheral enhancement. Probable seroma. Centrally locat ed hepatic cyst measuring 2.4 cm. Multiple new hypodense lesions are now demonstrated throughout the liver, largest measuring 2.7 cm. A previous lesion noted measuring 1.5 cm posterior left liver lobe now measures 2.1 cm. There appears to be a lead extending to the region of the jj hepatis with a generator device overl kim the left mid abdomen. Gallbladder surgically absent. Adrenal glands, kidneys, and pancreas show no gross anomaly. Similar splenomegaly at 15.9 cm. Retroperitoneal celiac lymphadenopathy measuring up to 1.6 cm. Portacaval adenopathy measuring 2.1 cm. Conglomerate left para-aortic lymphadenopathy measuring 5.8 x 4.0 cm. Conglomerate aortocaval adenopathy measuring 8.5 x 2.9 cm. No dilated small bowel or free air. Postsurgical changes of previous partial right hemicolectomy with anastomosis at the proximal transve rse colon. There is mild stool burning. Mild to moderate circumferential bladder wall thickening. prostate gland measures 4.8 cm wide. There is mild to moderate pelvic free fluid. No pelvic lymphadenopathy seen. Bones: No osseous destructive process. IMPRESSION: 1. INTERVAL PARTIAL RIGHT HEPATECTOMY. SMALL 3.7 X 2.4 CM FLUID COLLECTION ALONG THE SUPERIOR RESECTI ON MARGIN PROBABLY POSTOPERATIVE SEROMA. INTERVAL PARTIAL RIGHT HEMICOLECTOMY. INTERVAL PLACEMENT OF A LEFT MID ABDOMINAL GENERATOR DEVICE. STIMULATOR LEAD EXTENDING TO THE REGION OF THE JJ HEPATIS. 2. INTERVAL DISEASE PROGRESSION WITH NEW HYPODENSE METASTATIC LESIONS IN THE LIVER MEASURING UP TO 2. 7 CM. 3. ADDITIONAL DISEASE PROGRESSION WITH PORTACAVAL ADENOPATHY MEASURING UP TO 2.1 CM AND CONGLOMERATE RETROPERITONEAL ADENOPATHY MEASURING UP TO 8.5 CM. 4. MILD TO MODERATE PELVIC FREE FLUID, ETIOLOGY UNCLEAR.
--- NOTE | 2024-05-28 16:38 | XR ---
Report Patient: Gopal Pimentel C Ordering Physician: Unknown, Unknown ID: [id number] Phone, Pager: Phone: N/A Pager: N/A : [phone] Age/Gender: 53Y, M Primary Location: N/A Procedure: XR chest 2V Study Date: 05/03/2024 11:58:50 AM EXAMINATION TYPE: XR chest 2V DATE OF EXAM: 05/03/2024 COMPARISON: CT 09/06/2021 HISTORY: 53-year-old male with posterior back/chest pain TECHNIQUE: PA and lateral views FINDINGS: Heart normal size without pericardial effusion. Right anterior chest wall injection port with subclav ricardo access and tip at the lower SVC. The catheter appears looped at the level of the brachiocephalic junction. Strandy atelectasis in the right base. Surgical clips at the right upper quadrant. Some typ e of catheter projects at the upper abdomen. There is asymmetric opacity at the medial right upper lo be. Strandy atelectasis or scar at the right base. Additional patchy peripheral right upper lobe opac ity. IMPRESSION: 1. Asymmetric opacity medial right upper lobe may reflect a hypertrophied right anterior first rib en d. No prior radiographs are available for direct comparison purposes. CT may be indicated to exclude underlying nodule. 2. Also, some possible patchy peripheral right upper lobe opacity/infiltrate.
== END 2024-05-03 14:50 | disposition home or self-care (01) ==
LOC: EC 10:05
DX: R10.9 Unspecified abdominal pain (principal)
CPT/HCPCS: 71046; 74177; 96361; 96374; 96375; 99284

== ENCOUNTER 2024-08-02 06:18 | Emergency (ER) | payer BC ==
[2024-08-02 06:24] VITALS: RESP 18; TEMP 98.1
[2024-08-02] MEDS: HYDROmorphone 1 MG/ML 1 ML SYRINGE IVP STA (06:47)
[2024-08-02 06:53] LABS: Anisocytosis Slight; Basophils % (A) 0 %; Eosinophils % (A) 1 %; HCT 37.6 % (39.0-53.0); Hypochromasia Slight; Lymphocytes # (A) 0.5 k/uL (1.0-4.8); Lymphocytes % (A) 10 %; MCH 28.4 pg (25.0-35.0); MCV 88.8 fL (80.0-100.0); Mean Platelet Volume 6.9; Monocytes # (A) 0.5 k/uL (0-1.0); Monocytes % (A) 9 %; Neutrophils # (A) 4.3 k/uL (1.3-7.7); Neutrophils % (A) 79 %; Platelet Count 315 k/uL (150-450); RBC 4.24 m/uL (4.30-5.90); RDW 17.2 % (11.5-15.5); WBC 5.5 k/uL (3.8-10.6)
[2024-08-02 07:01] LABS: ALT 44 U/L (4-49); AST 44 U/L (17-59); African American GFR (CKD) >90 (>60 ml/min/1.73 sqM); Albumin 2.6 g/dL (3.5-5.0); Alkaline Phosphatase 494 U/L (38-126); Anion Gap 5 mmol/L; Blood Urea Nitrogen 14 mg/dL (9-20); Calcium 8.3 mg/dL (8.4-10.2); Carbon Dioxide 20 mmol/L (22-30); Chloride 106 mmol/L (98-107); Glucose 124 mg/dL (74-99); INR 1.2 (<1.2); Non-African American GFR(CKD) >90 (>60 ml/min/1.73 sqM); Partial Thromboplastin Time 26.2 sec (22.0-30.0); Potassium 4.6 mmol/L (3.5-5.1); Prothrombin Time 12.7 sec (10.0-12.5); Sodium 131 mmol/L (137-145); Total Bilirubin 1.4 mg/dL (0.2-1.3); Total Protein 5.6 g/dL (6.3-8.2)
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
[2024-08-02 07:29] VITALS: BP 113/77; PULSE 95
== END 2024-08-02 07:34 | disposition home or self-care (01) ==
LOC: EC 06:18
DX: R18.8 Other ascites (principal); R10.10 Upper abdominal pain, unspecified; C78.7 Secondary malignant neoplasm of liver and intrahepatic bile duct; Z87.891 Personal history of nicotine dependence; Z91.013 Allergy to seafood
CPT/HCPCS: 36415; 80053; 85025; 85610; 85730; 99284; 96374; J1171

== ENCOUNTER 2024-09-04 17:56 | Inpatient (IN) | payer BC ==
[2024-09-04 18:35] LABS: Basophils % (A) 0 %; Eosinophils % (A) 1 %; HCT 40.8 % (39.0-53.0); Lymphocytes # (A) 0.1 k/uL (1.0-4.8); Lymphocytes % (A) 6 %; MCH 26.8 pg (25.0-35.0); MCHC 31.7 g/dL (31.0-37.0); MCV 84.5 fL (80.0-100.0); Mean Platelet Volume 6.8; Monocytes # (A) 0.1 k/uL (0-1.0); Monocytes % (A) 6 %; Neutrophils # (A) 1.8 k/uL (1.3-7.7); Neutrophils % (A) 85 %; Platelet Count 357 k/uL (150-450); RBC 4.83 m/uL (4.30-5.90); RDW 15.8 % (11.5-15.5); WBC 2.1 k/uL (3.8-10.6)
[2024-09-04 18:49] LABS: ALT 31 U/L (4-49); AST 40 U/L (17-59); African American GFR (CKD) >90 (>60 ml/min/1.73 sqM); Albumin 2.7 g/dL (3.5-5.0); Alkaline Phosphatase 640 U/L (38-126); Anion Gap 7 mmol/L; Blood Urea Nitrogen 19 mg/dL (9-20); Calcium 8.2 mg/dL (8.4-10.2); Carbon Dioxide 26 mmol/L (22-30); Chloride 97 mmol/L (98-107); Glucose 127 mg/dL (74-99); Magnesium 1.9 mg/dL (1.6-2.3); Non-African American GFR(CKD) >90 (>60 ml/min/1.73 sqM); Potassium 4.3 mmol/L (3.5-5.1); Sodium 130 mmol/L (137-145); Total Bilirubin 1.1 mg/dL (0.2-1.3); Total Protein 5.4 g/dL (6.3-8.2)
[2024-09-04 18:54] LABS: INR 1.3 (<1.2); Prothrombin Time 13.9 sec (10.0-12.5)
--- NOTE | 2024-09-04 19:17 | XR ---
EXAMINATION TYPE: XR chest 2V DATE OF EXAM: 09/04/2024 7:01 PM COMPARISON: 05/03/2024 CLINICAL INDICATION: Male, 53 years old with history of Chest Pain; [facility] TECHNIQUE: XR chest 2V Frontal and lateral views of the chest. FINDINGS: Lungs/Pleura: Left midlung linear platelike probable atelectasis. There is no evidence of pleural eff usion, focal consolidation, or pneumothorax. Pulmonary vascularity: Unremarkable. Heart/mediastinum: Cardiomediastinal silhouette is unremarkable. Musculoskeletal: No acute osseous pathology. Other findings: right upper quadrant surgical clips are present in the abdomen Lines/Tubes: Hhmxah-n-Szgm projecting over the right hemithorax with distal tip at the cavoatrial junction. There is coiling of the catheter as seen on prior. IMPRESSION: No acute cardiopulmonary disease/process. [facility], , 09/04/2024 7:15 PM
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
--- NOTE | 2024-09-04 19:57 | CT ---
EXAMINATION TYPE: CT chest angio for PE DATE OF EXAM: 09/04/2024 7:36 PM COMPARISON: 08/29/2021, 05/03/2024. CLINICAL INDICATION: Male, 53 years old with history of elevated dimer; chest pain, elevated d-dimer TECHNIQUE/CONTRAST: CTA scan of the thorax is performed with IV Contrast, patient injected with 100 mL of Isovue 370, MIP images are created and reviewed these are created on a separate workstation.. CT DLP: 398.8 mGycm, Automated exposure control for dose reduction was used. FINDINGS: Lungs/Pleura: Left pleural effusion with associated atelectasis. No airspace consolidation, or pneumo thorax identified. No right pleural effusion. Streaky atelectasis in the left lung base. Few scattere d Airway: Large airways are patent. Heart: Heart is within normal limits for size. Vasculature: Few filling defects are seen within the left lower lung on the arterial vasculature seri es 14 image 92.. Right chest wall Lsdsfy-b-Tuhg tip terminating superior vena cava. Mediastinum: No gross evidence of adenopathy. Enlarged lymph node near the distal esophagus measuring 37 Hounsfield units and up to 18 mm in short axis. Musculoskeletal: No acute osseous abnormalities Soft Tissues/lymph nodes: Unremarkable. Lower neck: No significant findings. Upper Abdomen: Postsurgical changes to the upper abdomen on the right. Small to moderate abdominal as cites. Right simple appearing renal cysts. Lymphadenopathy throughout the retroperitoneum and upper a bdomen. Lymph nodes in the upper abdomen are increased in size now measuring 52 mm producing 4 mm on 05/03/2024. The liver metastatic disease is poorly evaluated but present some vague low-density area s een on prior CT are remain present. IMPRESSION: 1. Suspected left lower lung pulmonary embolus. 2. Moderate left pleural effusion with associated atelectasis. 3. Conglomerate lymphadenopathy in the upper abdomen as well as lymph node near the distal esophagus compatible with known metastatic disease., Liver lesions are less well appreciated due to phase of co ntrast. Findings communicated to [facility] on 09/04/2024 7:[address] Erich Francois. [facility], , 09/04/2024 7:55 PM
[2024-09-04] MEDS ORDERED: HEPARIN SODIUM 1,000 UN/ML (10ML VL) IV PRN (20:05)
[2024-09-04] MEDS: cefTRIAXone IN SWFI 1,000 MG/10 ML SYRINGE IVP STA (20:11)
[2024-09-04] MEDS: HYDROmorphone 1 MG/ML 1 ML SYRINGE IVP STA (20:11)
[2024-09-04] MEDS: SODIUM CHLORIDE 0.9% 500 ML 500 ML IV ONE (20:12)
[2024-09-04] MEDS: ONDANSETRON 4 MG/2 ML VIAL IVP STA (20:13)
[2024-09-04] MEDS: AZITHROMYCIN 500 MG in SODIUM CHLORIDE 0.9% 250 ML IVPB STA (20:14)
[2024-09-04] MEDS: HEPARIN SODIUM 1,000 UN/ML (10ML VL) IV ONE (20:38)
[2024-09-04] MEDS: HEPARIN SOD,PORK IN 0.45% NACL 25,000 UNIT in 0.45% NACL 1 250ML.BAG IV SCH (20:38)
[2024-09-04] MEDS ORDERED: ACETAMINOPHEN TAB 325 MG TAB PO PRN (21:44)
[2024-09-04] MEDS ORDERED: ONDANSETRON 4 MG/2 ML VIAL IVP PRN (21:44)
[2024-09-04] MEDS ORDERED: CALCIUM CARBONATE 500 MG CHEWABLE PO PRN (21:44)
[2024-09-04] MEDS ORDERED: MAG HYDROX/AL HYDROX/SIMETH 30 ML CUP PO PRN (21:44)
[2024-09-04] MEDS ORDERED: NALOXONE 0.4 MG/ML 1 ML VIAL IV PRN (21:44)
[2024-09-04] MEDS ORDERED: CYCLOBENZAPRINE 10 MG TAB PO PRN (21:45)
[2024-09-04] MEDS ORDERED: HYDROmorphone 2 MG TAB PO PRN (21:46)
[2024-09-04] MEDS ORDERED: PROCHLORPERAZINE 10 MG TAB PO PRN (21:46)
[2024-09-04] MEDS: LORATADINE 10 MG TAB PO SCH (22:45)
[2024-09-05] MEDS: OSELTAMIVIR 75 MG CAP PO SCH (00:46)
[2024-09-05 02:15] LABS: Anisocytosis Slight; Basophils % (A) 0 %; Eosinophils % (A) 1 %; HCT 37.8 % (39.0-53.0); HGB 11.7 gm/dL (13.0-17.5); Lymphocytes # (A) 0.1 k/uL (1.0-4.8); Lymphocytes % (A) 5 %; MCH 26.7 pg (25.0-35.0); MCV 86.1 fL (80.0-100.0); Monocytes # (A) 0.1 k/uL (0-1.0); Monocytes % (A) 8 %; Neutrophils # (A) 1.4 k/uL (1.3-7.7); Neutrophils % (A) 84 %; Platelet Count 228 k/uL (150-450); RBC 4.39 m/uL (4.30-5.90); RDW 16.3 % (11.5-15.5); WBC 1.7 k/uL (3.8-10.6)
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
[2024-09-05] MEDS: ZINC SULFATE 220 MG CAP PO SCH (08:23)
[2024-09-05] MEDS: FUROSEMIDE 40 MG TAB PO SCH (08:23)
[2024-09-05] MEDS: SPIRONOLACTONE 25 MG TAB PO SCH (08:23)
[2024-09-05] MEDS: ASCORBIC ACID 500 MG TAB PO SCH (08:24)
[2024-09-05] MEDS: FAMOTIDINE 20 MG TAB PO SCH (08:24)
[2024-09-05] MEDS: CHOLECALCIFEROL 25 MCG (1000 IU) TABLET PO SCH (08:24)
[2024-09-05] MEDS: MULTIVITAMINS, THERA 1 EACH TAB PO SCH (08:30)
[2024-09-05 09:42] LABS: C Reactive Protein 4.2 mg/dL (<1.0)
--- NOTE | 2024-09-05 09:44 | US ---
EXAMINATION TYPE: US venous doppler duplex LE DATE OF EXAM: 09/05/2024 8:13 AM COMPARISON: NONE CLINICAL INDICATION: Male, 53 years old with pain, history of leg swelling; swelling. Hx of DVT in le ft leg 8 years ago, Pain TECHNIQUE: The lower extremity deep venous system is examined utilizing real time linear array sonog avi with graded compression, color doppler sonography, and spectral doppler. SIDE PERFORMED: Bilateral FINDINGS: VESSELS IMAGED: Common Femoral Vein Deep Femoral Vein Greater Saphenous Vein * Femoral Vein Popliteal Vein Small Saphenous Vein * Proximal Calf Veins (* superficial vessels) Right Leg: No evidence for DVT, Color Doppler imaging shows patency of the vessels. Spectral wavefor ms are within normal limits. Left Leg: No evidence for DVT, Color Doppler imaging shows patency of the vessels. Spectral waveform s are within normal limits. IMPRESSION: No evidence for DVT within the bilateral lower extremities imaged from the groin to the upper calves. [facility], , 09/05/2024 9:41 AM
[2024-09-05] MEDS: HYDROmorphone 0.5 MG/0.5 ML SYRINGE IVP PRN (10:15)
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
[2024-09-05 16:12] VITALS: BMI 27.2
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
[2024-09-06 03:14] LABS: Anisocytosis Slight; Basophils % (A) 1 %; Eosinophils % (A) 1 %; HCT 39.6 % (39.0-53.0); HGB 12.7 gm/dL (13.0-17.5); Lymphocytes # (A) 0.2 k/uL (1.0-4.8); Lymphocytes % (A) 8 %; MCH 27.4 pg (25.0-35.0); MCHC 32.1 g/dL (31.0-37.0); MCV 85.2 fL (80.0-100.0); Monocytes # (A) 0.3 k/uL (0-1.0); Monocytes % (A) 11 %; Neutrophils # (A) 2.2 k/uL (1.3-7.7); Neutrophils % (A) 77 %; Platelet Count 250 k/uL (150-450); RBC 4.65 m/uL (4.30-5.90); RDW 16.1 % (11.5-15.5); WBC 2.9 k/uL (3.8-10.6)
[2024-09-06 03:30] LABS: ALT 26 U/L (4-49); AST 36 U/L (17-59); African American GFR (CKD) >90 (>60 ml/min/1.73 sqM); Albumin 2.4 g/dL (3.5-5.0); Alkaline Phosphatase 537 U/L (38-126); Anion Gap 5 mmol/L; Bilirubin, Delta 0.4 mg/dL (0.0-0.2); Bilirubin,Unconjugated 0.5 mg/dL (0.0-1.1); Blood Urea Nitrogen 20 mg/dL (9-20); Carbon Dioxide 22 mmol/L (22-30); Chloride 102 mmol/L (98-107); Glucose 119 mg/dL (74-99); Non-African American GFR(CKD) >90 (>60 ml/min/1.73 sqM); Sodium 129 mmol/L (137-145); Total Bilirubin 0.9 mg/dL (0.2-1.3)
[2024-09-06 10:17] VITALS: RESP 16
[2024-09-06] MEDS: Apixaban Initiation Dose--VTE 5 MG TAB PO SCH (10:22)
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
[2024-09-06 12:00] VITALS: BP 125/88; PULSE 100; TEMP 98.4
--- NOTE | 2024-09-06 15:08 | CA ---
Transthoracic Echo Report Name: Gopal Pimentel Age: 53 Gender: M : 1970 Exam Date: 09/06/2024 11:35 Exam Location: [place] [facility] Ht (in): 70 Wt (lb): 190 Ordering Physician: Elias Tee MD Attending/Referring Phys: [id number], [facility] Case Manager Lavern Andrade, [facility] Procedure CPT: Indications: Chest Pain Cardiac Hx: Technical Quality: Technically difficult study Contrast 1: Total Dose (mL): Contrast 2: Total Dose (mL): MEASUREMENTS (Male / Female) Normal Values 2D ECHO LV Diastolic Diameter PLAX 4.1 cm 4.2 - 5.9 / 3.9 - 5.3 cm LV Systolic Diameter PLAX 2.7 cm IVS Diastolic Thickness 0.9 cm 0.6 - 1.0 / 0.6 - 0.9 cm LVPW Diastolic Thickness 1.0 cm 0.6 - 1.0 / 0.6 - 0.9 cm LV Relative Wall Thickness 0.5 RV Internal Dim ED PLAX 3.6 cm LA Systolic Diameter LX 3.0 cm 3.0 - 4.0 / 2.7 - 3.8 cm M-MODE Aortic Root Diameter MM 3.9 cm AV Cusp Separation MM 2.6 cm DOPPLER AV Peak Velocity 76.6 cm/s AV Peak Gradient 2.3 mmHg MV Area PHT 2.8 cm??? Mitral E Point Velocity 61.7 cm/s Mitral A Point Velocity 86.2 cm/s Mitral E to A Ratio 0.7 MV Deceleration Time 266.3 ms FINDINGS Left Ventricle Left ventricular ejection fraction is estimated at 50-55 %. Left ventricular cavity size normal. Left ventricular cavity size normal. Apical inferir hypokinesis Right Ventricle Mild right ventricular dilatation. Unable to estimate the right ventricular systolic pressure. Right Atrium Right atrium not well visualized. Left Atrium Normal left atrial size. No left atrial thrombus or mass present. Mitral Valve Structurally normal mitral valve. No mitral stenosis, regurgitation or prolapse. Aortic Valve Trileaflet aortic valve. No aortic valve stenosis or regurgitation. Tricuspid Valve Structurally normal tricuspid valve. No tricuspid stenosis, regurgitation or prolapse. Pulmonic Valve Pulmonic valve not well visualized. Pericardium No pericardial effusion. Aorta Mild aortic dilatation at the level of the sinuses of valsalva 39 mm CONCLUSIONS Normal LV systolic function Previewed by: Dr. Edy Mckeon MD (Electronically Signed) Final Date: 06 September 2024 15:07
--- NOTE | 2024-09-06 15:32 | P.DS ---
Providers Date of admission: 09/04/24 21:45 Expected date of discharge: 09/06/24 Attending physician: Elton Tenorio Consults: 09/05/24 08:12 Consult Physician Routine Consulting Provider: Yogesh Bryant Consult Reason/Comments: ekg changes, possible st depressin on inf leads Do you want consulting provider notified?: Yes 09/05/24 08:14 Consult Physician Routine Consulting Provider: Moira Paredes Consult Reason/Comments: metastatic colon cancer Do you want consulting provider notified?: Yes 09/05/24 08:26 Consult Physician Routine Consulting Provider: Malissa Nagy Consult Reason/Comments: PE, pleural effusion Do you want consulting provider notified?: Yes [facility] care [facility] Course: Discharge diagnoses: Acute left lower lobe pulmonary embolism History of colon cancer status post colostomy and liver resection follows at [facility] status post chemotherapy, last dose 1 week prior to hospitalization Acute influenza: Acute COVID-19 infection Mild hyponatremia Upper abdominal lymphadenopathy and around esophagus distal past most likely related to his colon cancer with diagnosis and 2019 Moderate left pleural effusion Ascites Patient admitted hospital, was initially on heparin drip, later on switched to Eliquis. Echocardiogram was done which showed normal EF. Pulmonary and cardiology consulted. Patient remained on room air. Oncology consultedrecommended follow-up at [facility] Continued on Eliquis 10 mg twice daily for 7 days followed by 5 mg twice daily afterwards at discharge Continued on Tamiflu to complete 5 days Home medications resumed Hospital course: This is a pleasant 53 years old male with past medical history of colon cancer status post colon resection and part of the liver , he follows up with [facility] oncologist, his last chemotherapy was on Sunday. Patient presents because of heaviness in his chest rather than pain since last Sunday associated with shortness of breath and dry coughing but no hemoptysis . Also he had some lightheadedness but no overt dizziness or headache or weakness or numbness No urinary symptoms, No abdominal pain vomiting. He has some loose stool from the contrast. He denies smoking alcohol or illicit drugs. He is afebrile and mildly tachycardic with heart rate 94 205 He has mild leukopenia at 1.7, hemoglobin 11.7, platelet count is normal. Sodium slightly low at 130, LFTs is unremarkable, troponin x 2 is negative. He tested positive for influenza and COVID Troponin x 2 were negative D-dimer is elevated 4.8 EKG showing sinus tachycardia at [address] depression in the inferior leads CTA of the chest was positive for PE with a left lower lobe with moderate left pleural effusion and lymphadenopathy in the upper abdomen and near distal esophagus most likely related to his metastatic disease Patient was admitted to hospital for further evaluation and management. Ultrasound venous negative for DVT. Echocardiogram showed normal LV systolic function, apical inferior hypokinesis. Patient was initially on heparin drip, later on transition to Eliquis. Cardiology, pulmonary and oncology consulted. Patient discharged pending cardiology clearance. Patient condition and vital oncology at [facility] Stable at discharge. Please refer to medical assessment for further details. Follow-up with PCP in 1 week Follow-up with oncology at [facility] PHYSICAL EXAMINATION: GENERAL: The patient is A&O x3, NAD HEENT: EOMI, Sclerae anicteric, Moist Mucous membranes Neck: Supple, Non tender, No JVD PULMONARY: Equal breath souds B/L, No wheezing, No crackles. CARDIOVASCULAR: S1, S2 present. No murmurs, rubs, or gallops. ABDOMEN: Soft, nontender, nondistended, normoactive bowel sounds. No guarding or rebound tenderness. MUSCULOSKELETAL: No edema, No cyanosis. No clubbing. Normal ROM. Intact peripheral pulses. NEUROLOGICAL: CN 2-12 grossly intact. No FND SKIN: No rashes. Dictation was produced using Loop dictation software. please excuse any gramm atical, word or spelling errors. Patient Condition at Discharge: Stable Plan - Discharge Summary Discharge Rx Participant: No New Discharge Prescriptions: New Apixaban [Eliquis Starter Pack (for VTE)] 5 - 10 mg PO DIRECTED 30 Days #1 each Oseltamivir [Tamiflu] 75 mg PO Q12HR #6 cap Continue Cyclobenzaprine [Flexeril] 5 - 10 mg PO HS PRN PRN Reason: muscle spasms Spironolactone [Aldactone] 50 mg PO DAILY Cetirizine HCl [Zyrtec] 10 mg PO DIRECTED Multivitamins, Thera [Multivitamin (formulary)] 1 tab PO DAILY HYDROmorphone [Dilaudid] 2 mg PO Q6H PRN PRN Reason: Pain Prochlorperazine [Compazine] 10 mg PO Q4H PRN PRN Reason: Nausea Furosemide [Lasix] 40 mg PO DAILY Discharge Medication List Cetirizine HCl [Zyrtec] 10 mg PO DIRECTED 09/04/24 [History] Cyclobenzaprine [Flexeril] 5 - 10 mg PO HS PRN 09/04/24 [History] Furosemide [Lasix] 40 mg PO DAILY 09/04/24 [History] HYDROmorphone [Dilaudid] 2 mg PO Q6H PRN 09/04/24 [History] Multivitamins, Thera [Multivitamin (formulary)] 1 tab PO DAILY 09/04/24 [History] Prochlorperazine [Compazine] 10 mg PO Q4H PRN 09/04/24 [History] Spironolactone [Aldactone] 50 mg PO DAILY 09/04/24 [History] Apixaban [Eliquis Starter Pack (for VTE)] 5 - 10 mg PO DIRECTED 30 Days #1 each 09/05/24 [Rx] Oseltamivir [Tamiflu] 75 mg PO Q12HR #6 cap 09/06/24 [Rx] Follow up Appointment(s)/Referral(s): Malissa Nagy MD [STAFF PHYSICIAN] - 1 Week Erich Andrade MD [Primary Care Provider] - 1-2 days Patient Instructions/Handouts: Pulmonary Embolism (DC), Influenza (DC), Safe Use of Anticoagulants (DC), COVID-19 (Coronavirus Disease 2019) (DC)
--- NOTE | 2024-09-06 16:08 | P.PN ---
Subjective Progress Note Date: 09/06/24 Principal diagnosis: Acute pulmonary embolism This is a 53-year-old white male, history of colon cancer with metastasis to the liver patient normally follows up at the [facility] and his last chemotherapy was on Sunday. Patient came into the ER yesterday complaining of few days history of shortness of breath, heaviness in the chest, and dry cough. No fever no chills no hemoptysis no chest pain. Patient had a CT angiogram of the chest which was relatively poor quality but nonetheless it showed pulmonary embolism and filling defects in the left lower lobe with moderate left pleural effusion and lymphadenopathy in the upper abdomen. Had history of ascites, and he required paracentesis on a regular basis for his ascites which I assume is malignant or could be related to his metastasis to the liver. Rate I was asked to see this patient mostly because of his positive CT angiogram for pulmonary embolism. I am recommending anticoagulation therapy, echocardiogram, rule out right ventricular strain, and I am also recommending transitioning the patient to oral anticoagulation therapy in the next 24 hours, possibly discharge in 24 hours and have the patient follow-up at the [facility]. Venous Doppler of the lower extremities was noted to be negative for DVT. Labs today on admission showed leukopenia with WBC of 2.1 hemoglobin is 13.0 D-dimer 4.89. In addition to all of this patient was noted to have COVID positive and influenza A positive screening. Patient was seen and examined today on 09/06/2024, patient is sitting at the edge of the bed, on room air, does not seem to be in any distress. Patient was already transition to Eliquis from heparin, and he is receiving treatment for his influenza A infection. Hardly any pulmonary symptoms, is also at bedside, patient asked me if he could be discharged home and I felt it is very appropriate to send the patient home with treatment as outlined, and the patient to remain on Eliquis, patient will likely need to be on anticoagulation therapy for the rest of his life considering his underlying malignancy although COVID-19 infection could be a major contributing factor to her thromboembolic disease. Nonetheless I am recommending lifetime treatment for his acute pulmonary embolism. Objective - Vital Signs Vital signs: Vital Signs Temp 98.4 F 09/06/24 11:36 Pulse 100 09/06/24 11:36 Resp 16 09/06/24 11:36 BP 125/88 09/06/24 11:36 Pulse Ox 100 09/06/24 11:36 FiO2 Intake & Output 09/05/24 09/06/24 09/06/24 18:59 06:59 18:59 Intake Total 469.851 228.041 394.621 Balance 469.851 228.041 394.621 Weight 86.183 kg 89.3 kg Intake: IV 30 Invasive Line 1 30 Intake, IV Titration 229.851 228.041 124.621 Amount Heparin Sod,Pork in 0.45% 229.851 228.041 124.621 NaCl 25,000 unit In 0.45 % NaCl 1 250ml.bag @ 18 UNITS/KG/HR 15.513 mls/hr IV .Q16H7M [facility] Rx#: [id number] Oral 240 240 Other: Voiding Method Toilet Toilet Toilet Urinal Urinal Urinal # Voids 1 2 3 # Bowel Movements 3 - Exam GENERAL: Revealed 53-year-old white male in no distress HEENT: PERRLA, EOMI, anicteric, no neck masses no JVD CARDIOVASCULAR: S1 and S2 present. No murmurs, rubs, or gallops. PULMONARY: Chest is clear to auscultation, no wheezing , no crackles. -ABDOMEN: Positive ascites soft, nontender, distended, normoactive bowel sounds. No palpable organomegaly. has pump in the left upper abdomen MUSCULOSKELETAL: No joint swelling or deformity. EXTREMITIES: No cyanosis, clubbing, or pedal edema. NEUROLOGICAL: Oriented x 3 no gross focal neurologic deficit SKIN: No rashes. no petechiae. - Labs CBC & Chem 7: 09/06/24 02:59 09/06/24 02:59 Labs: Abnormal Lab Results - Last 24 Hours (Table) 09/06/24 09/06/24 09/06/24 Range/Units 02:59 02:59 02:59 WBC 2.9 L (3.8-10.6) k/uL Hgb 12.7 L (13.0-17.5) gm/dL RDW 16.1 H (11.5-15.5) % Lymphocytes # 0.2 L (1.0-4.8) k/uL APTT 48.4 H (22.0-30.0) sec Sodium 129 L (137-145) mmol/L Creatinine 0.65 L (0.66-1.25) mg/dL Glucose 119 H (74-99) mg/dL Calcium 8.0 L (8.4-10.2) mg/dL Delta Bilirubin 0.4 H (0.0-0.2) mg/dL Alkaline Phosphatase 537 H (38-126) U/L Total Protein 5.0 L (6.3-8.2) g/dL Albumin 2.4 L (3.5-5.0) g/dL Assessment and Plan Assessment: Impression: Acute left lower lobe pulmonary embolism Acute COVID-19 infection, without pneumonia Acute influenza A infection/bronchitis History of metastatic colon cancer, on chemotherapy History of recurrent ascites Left-sided pleural effusion Recommendation: Freddie Elizabeth reviewed the results of his echocardiogram Noted patient had negative venous Doppler for lower extremities I will clear the patient for discharge and follow-up with the [facility] if cleared by other consultants Time with Patient: Less than 30
== END 2024-09-06 18:29 | disposition home or self-care (01) | DRG 177 ==
LOC: EC 17:56 → 3SCARD 21:45
PROVIDERS: ADMIT Hospitalist; ATTEND Hospitalist
DX: U07.1 COVID-19 (principal); I26.99 Other pulmonary embolism without acute cor pulmonale; E87.1 Hypo-osmolality and hyponatremia; J90 Pleural effusion, not elsewhere classified; R64 Cachexia; R18.8 Other ascites; R13.10 Dysphagia, unspecified; J10.1 Influenza due to other identified influenza virus with other respiratory manifestations; Z93.3 Colostomy status; Z85.048 Personal history of other malignant neoplasm of rectum, rectosigmoid junction, and anus; Z92.21 Personal history of antineoplastic chemotherapy; Z90.49 Acquired absence of other specified parts of digestive tract; Z85.05 Personal history of malignant neoplasm of liver; Z87.891 Personal history of nicotine dependence; Z86.718 Personal history of other venous thrombosis and embolism; Z79.899 Other long term (current) drug therapy
CPT/HCPCS: 36415; 71046; 71275; 80048; 80053; 80076; 83615; 83690; 83735; 84145; 84484; 85025; 85379; 85610; 85730; 86140; 87636; 93005; 93306; 93970; 96365; 96366; 96368; 96375; 96376; 99285

== ENCOUNTER 2024-12-12 15:16 | Inpatient (IN) | payer BC ==
[2024-12-12 17:31] LABS: Anisocytosis Slight; Basophils % (A) 0 %; Eosinophils % (A) 0 %; HCT 40.4 % (39.0-53.0); HGB 12.6 gm/dL (13.0-17.5); Hypochromasia Moderate; Lymphocytes # (A) 0.4 k/uL (1.0-4.8); Lymphocytes % (A) 4 %; MCHC 31.3 g/dL (31.0-37.0); MCV 86.2 fL (80.0-100.0); Mean Platelet Volume 7.3; Monocytes # (A) 0.5 k/uL (0-1.0); Monocytes % (A) 5 %; Neutrophils # (A) 9.2 k/uL (1.3-7.7); Neutrophils % (A) 90 %; Platelet Count 298 k/uL (150-450); RBC 4.68 m/uL (4.30-5.90); RDW 19.9 % (11.5-15.5); WBC 10.3 k/uL (3.8-10.6)
[2024-12-12 17:41] LABS: INR 2.6 (<1.2); Partial Thromboplastin Time 32.6 sec (22.0-30.0); Prothrombin Time 25.7 sec (10.0-12.5)
[2024-12-12] MEDS: SODIUM CHLORIDE 0.9% 1,000 ML IV ONE (17:42)
[2024-12-12 17:58] LABS: ALT 50 U/L (4-49); AST 116 U/L (17-59); African American GFR (CKD) >90 (>60 ml/min/1.73 sqM); Alkaline Phosphatase 954 U/L (38-126); Anion Gap 9 mmol/L; Blood Urea Nitrogen 44 mg/dL (9-20); Calcium 7.8 mg/dL (8.4-10.2); Carbon Dioxide 24 mmol/L (22-30); Chloride 87 mmol/L (98-107); Glucose 107 mg/dL (74-99); Non-African American GFR(CKD) >90 (>60 ml/min/1.73 sqM); Sodium 120 mmol/L (137-145); Total Bilirubin 7.6 mg/dL (0.2-1.3); Total Protein 5.6 g/dL (6.3-8.2)
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
[2024-12-13] MEDS ORDERED: BACLOFEN 10 MG TAB PO PRN (11:01)
[2024-12-13] MEDS ORDERED: LORazepam 0.5 MG TAB PO PRN (11:01)
[2024-12-13] MEDS ORDERED: PROCHLORPERAZINE 10 MG TAB PO PRN (11:01)
[2024-12-13] MEDS ORDERED: ONDANSETRON ODT 8 MG TAB.RAPDIS PO PRN (11:01)
[2024-12-13] MEDS: ASCORBIC ACID 500 MG TAB PO SCH (11:44)
[2024-12-13] MEDS: FUROSEMIDE 40 MG TAB PO SCH (11:46)
[2024-12-13] MEDS: SPIRONOLACTONE 25 MG TAB PO SCH (11:46)
[2024-12-13] MEDS: CHOLECALCIFEROL 10 MCG (400 IU) TABLET PO SCH (11:47)
[2024-12-13] MEDS: HYDROmorphone 2 MG TAB PO PRN (11:49)
[2024-12-13] MEDS: FLUTICASONE NASAL 50MCG/SPRAY 16GM BTL EA NOSTRIL SCH (11:49)
[2024-12-13 12:30] LABS: Prothrombin Time 20.7 sec (10.0-12.5)
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
[2024-12-13] MEDS: PHYTONADIONE 5 MG in SODIUM CHLORIDE 0.9% 50 ML IVPB STA (14:17)
[2024-12-13] MEDS: ENOXAPARIN 60 MG/0.6 ML SYRINGE SQ SCH (16:04)
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
[2024-12-13 19:21] LABS: African American GFR (CKD) >90 (>60 ml/min/1.73 sqM); Anion Gap 10 mmol/L; Blood Urea Nitrogen 44 mg/dL (9-20); Calcium 8.3 mg/dL (8.4-10.2); Carbon Dioxide 26 mmol/L (22-30); Chloride 88 mmol/L (98-107); Glucose 77 mg/dL (74-99); Magnesium 1.9 mg/dL (1.6-2.3); Non-African American GFR(CKD) >90 (>60 ml/min/1.73 sqM); Potassium 4.5 mmol/L (3.5-5.1); Sodium 124 mmol/L (137-145)
[2024-12-13] MEDS: droNABinol 2.5 MG CAP PO SCH (22:32)
[2024-12-14 06:20] LABS: African American GFR (CKD) 88 (>60 ml/min/1.73 sqM); Anion Gap 10 mmol/L; Blood Urea Nitrogen 48 mg/dL (9-20); Calcium 8.4 mg/dL (8.4-10.2); Carbon Dioxide 21 mmol/L (22-30); Chloride 91 mmol/L (98-107); Glucose 61 mg/dL (74-99); Non-African American GFR(CKD) 76 (>60 ml/min/1.73 sqM); Sodium 122 mmol/L (137-145)
[2024-12-14 07:15] LABS: Glucose,Whole Blood 65 mg/dL (70-110)
[2024-12-14 07:44] LABS: Glucose,Whole Blood 62 mg/dL (70-110)
[2024-12-14 08:03] LABS: Glucose,Whole Blood 60 mg/dL (70-110)
[2024-12-14] MEDS: GLUCAGON 1 MG/ML VIAL IVP STA (08:39)
[2024-12-14] MEDS: METOCLOPRAMIDE 5 MG/ML 2 ML VIAL IVP STA (08:50)
[2024-12-14 09:09] LABS: Glucose,Whole Blood 51 mg/dL (70-110)
[2024-12-14] MEDS: DEXTROSE 50% SYRINGE 50 ML IVP STA ×2 (09:19→21:35)
[2024-12-14 09:45] LABS: Glucose,Whole Blood 104 mg/dL (70-110)
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
[2024-12-14] MEDS: SPIRONOLACTONE 25 MG TAB PO SCH (12:05)
[2024-12-14 12:11] LABS: Glucose,Whole Blood 110 mg/dL (70-110)
[2024-12-14] MEDS: MIDODRINE 5 MG TAB PO SCH (12:44)
[2024-12-14] MEDS: UREA 15 GM POWD.PACK PO SCH (12:44)
[2024-12-14] MEDS: SODIUM CHLORIDE 0.9% 500 ML 250 ML IV ONE (13:54)
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
[2024-12-14] MEDS ORDERED: NALOXONE 0.4 MG/ML 1 ML VIAL IV PRN (15:49)
[2024-12-14 15:51] LABS: Glucose,Whole Blood 104 mg/dL (70-110)
[2024-12-14] MEDS: SODIUM CHLORIDE 3%(HYPERTONIC) 500 ML IV ONE (17:08)
[2024-12-14 17:25] VITALS: TEMP 97.5
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
[2024-12-14 19:00] LABS: Glucose,Whole Blood 82 mg/dL (70-110)
[2024-12-14] MEDS: NOREPINEPHRINE 4 MG in SODIUM CHLORIDE 0.9% 250 ML IV SCH (20:32)
[2024-12-14 20:54] LABS: INR 2.4 (<1.2); Partial Thromboplastin Time 39.5 sec (22.0-30.0); Prothrombin Time 23.6 sec (10.0-12.5)
[2024-12-14 21:10] LABS: Glucose,Whole Blood 65 mg/dL (70-110)
[2024-12-14] MEDS: FUROSEMIDE 10 MG/ML 2 ML VIAL IV ONE (21:35)
[2024-12-14 21:41] VITALS: PULSE 100
[2024-12-14 21:57] LABS: Glucose,Whole Blood 124 mg/dL (70-110)
[2024-12-14 22:16] VITALS: BP 84/55; RESP 16
[2024-12-14] MEDS ORDERED: LORazepam 1 MG/0.5 ML VIAL IV PRN (22:33)
[2024-12-14] MEDS: MORPHINE SULFATE 4 MG/ML SYRINGE IVP PRN (22:42)
[2024-12-14] MEDS: ATROPINE OPHTH SOLN 1% 5ML BTL SUBLINGUAL PRN (23:03)
[2024-12-14] MEDS: ARTIFICIAL TEARS-HYPROMELLOSE DROPS 15 ML BTL BOTH EYES PRN (23:03)
[2024-12-14] MEDS: MORPHINE SULFATE 100 MG in SODIUM CHLORIDE 0.9% 90 ML IV SCH (23:04)
[2024-12-14] MEDS: SCOPOLAMINE 1 MG/72 HR PATCH TRANSDERM SCH (23:04)
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
[2024-12-15] MEDS ORDERED: PANTOPRAZOLE 40 MG TABLET PO SCH (07:30)
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
== END 2024-12-15 06:27 | disposition expired | DRG 299 ==
LOC: EC 15:16 → 4SSUR 19:41 → 5NMEDONC 20:24 → 3SCARD 12-13 07:08 → 5NMEDONC 12-13 16:09 → 2SICU 12-14 15:37
PROVIDERS: ADMIT Hospitalist; ATTEND Hospitalist
PROC: 3E033XZ Introduction of Vasopressor into Peripheral Vein, Percutaneous Approach (ICD-10-PCS; principal; 2024-12-14)
PROC: 5A09357 Assistance with Respiratory Ventilation, Less than 24 Consecutive Hours, Continuous Positive Airway Pressure (ICD-10-PCS; 2024-12-14)
DX: I82.C12 Acute embolism and thrombosis of left internal jugular vein (principal); E43 Unspecified severe protein-calorie malnutrition; R18.8 Other ascites; K72.90 Hepatic failure, unspecified without coma; C78.7 Secondary malignant neoplasm of liver and intrahepatic bile duct; D68.4 Acquired coagulation factor deficiency; E87.1 Hypo-osmolality and hyponatremia; Z51.5 Encounter for palliative care; C18.6 Malignant neoplasm of descending colon; C18.4 Malignant neoplasm of transverse colon; I82.B12 Acute embolism and thrombosis of left subclavian vein; Z66 Do not resuscitate; K75.89 Other specified inflammatory liver diseases; I95.9 Hypotension, unspecified; E80.6 Other disorders of bilirubin metabolism; E16.2 Hypoglycemia, unspecified; G89.3 Neoplasm related pain (acute) (chronic); E87.70 Fluid overload, unspecified; Z86.711 Personal history of pulmonary embolism; Z79.899 Other long term (current) drug therapy; Z87.891 Personal history of nicotine dependence; Z90.49 Acquired absence of other specified parts of digestive tract; Z92.21 Personal history of antineoplastic chemotherapy; Z68.22 Body mass index [BMI] 22.0-22.9, adult; Z92.3 Personal history of irradiation; Z86.0102 Personal history of hyperplastic colon polyps
CPT/HCPCS: 36415; 80048; 80053; 83735; 83930; 84295; 85025; 85610; 85730; 94660; 96361; 96365; 96372; 99285

== ENCOUNTER → 2024-12-12 | Outpatient (CLI) | payer BC ==
--- NOTE | 2024-12-12 15:14 | US ---
EXAMINATION TYPE: US venous doppler duplex UE LT DATE OF EXAM: 12/12/2024 COMPARISON: NONE CLINICAL INDICATION: Male, 54 years old with history of LUE; R60.0 Edema; Edema x 3 weeks TECHNIQUE: Grayscale, color Doppler and spectral Doppler imaging of the upper extremity. SIDE PERFORMED: left VESSELS IMAGED: IJV Subclavian Vein Axilla Vein Brachial Vein(s) Radial Paired Veins Ulnar Paired Veins Cephalic Vein* Basilic Vein* (*superficial vessels) FINDINGS: Left Arm: Positive for DVT There is extensive DVT involving the left IJV, subclavian vein, and one branch of the proximal portio n of the brachial vein. Results attempted to be communicated to ordering physician, Out of country at time of exam per of fice. Grayscale, color doppler, spectral doppler imaging performed of the deep veins of the upper extremiti es. IMPRESSION: There is acute deep and superficial venous thrombus in the left upper extremity. Advise patient to go to the emergency room for further workup and/or treatment. [facility], , 12/12/2024 3:11 PM
== END | disposition home or self-care (01) ==
LOC: RADUSWWP 14:15
PROVIDERS: ATTEND Internal Medicine Gastroenterology
DX: I82.612 Acute embolism and thrombosis of superficial veins of left upper extremity (principal); C18.3 Malignant neoplasm of hepatic flexure; R60.0 Localized edema; E87.1 Hypo-osmolality and hyponatremia